=== PATIENT | male | born 1975 | race Hispanic/Latino ===

== ENCOUNTER 2017-06-27 03:24 | Emergency (ER) | payer OTHER ==
[~2017-06-27] VITALS: Ht 167.6 cm; Wt 83.0 kg
[2017-06-27 03:29] VITALS: BP 144/91
[2017-06-27] MEDS ORDERED: GABA600T PO (03:37)
[2017-06-27] MEDS ORDERED: TOPR25TA PO (03:37)
[2017-06-27] MEDS ORDERED: LOSA50TA20 PO (03:37)
[2017-06-27] MEDS ORDERED: SING10TA32 PO (03:37)
[2017-06-27] MEDS ORDERED: CYMB1CAP4 PO (03:37)
[2017-06-27] MEDS ORDERED: PROT1TAB2 PO (03:37)
[2017-06-27] MEDS ORDERED: FLON27.5 (03:37)
[2017-06-27] MEDS ORDERED: diphenhydrAMINE INJ 50MG/ML VIAL (J1200) IV STA (03:48)
[2017-06-27] MEDS ORDERED: dexameTHASONE 20 MG/5 ML VIAL (J1100) IV ONE (04:00)
== END 2017-06-27 04:18 | disposition home or self-care (01) ==
LOC: M ED 03:24
DX: R21 Rash and other nonspecific skin eruption (principal); T50.905A Adverse effect of unspecified drugs, medicaments and biological substances, initial encounter; I10 Essential (primary) hypertension; F33.9 Major depressive disorder, recurrent, unspecified; Z79.899 Other long term (current) drug therapy
CPT/HCPCS: 96374; 96375; 99283; J1100; J1200

== ENCOUNTER → 2017-08-11 | Outpatient (CLI) | payer OTHER ==
[~2017-08-11] MED LIST: CYMB1CAP4 PO; FISH5CAP PO; FLON27.5; GABA600T PO; LOSA50TA20 PO; PROT1TAB2 PO; SING10TA32 PO; TOPR25TA PO; VITA100067 PO; VITA1CAP7 PO; ZOLM2.5T2 PO
--- NOTE | 2017-08-11 21:54 | ECGEPIP ---
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
== END ==
LOC: M EKG 09:36
PROVIDERS: ATTEND Anesthesiology
DX: Z01.818 Encounter for other preprocedural examination (principal); I10 Essential (primary) hypertension; K21.9 Gastro-esophageal reflux disease without esophagitis; M19.90 Unspecified osteoarthritis, unspecified site; F41.9 Anxiety disorder, unspecified; J45.909 Unspecified asthma, uncomplicated; R94.31 Abnormal electrocardiogram [ECG] [EKG]

== ENCOUNTER 2017-08-20 09:36 | Day surgery (SDC) | payer OTHER ==
[~2017-08-20] VITALS: Ht 167.6 cm; Wt 85.3 kg
[2017-08-20] MEDS ORDERED: LR 1,000 ML IV ONE (09:45)
[2017-08-20] MEDS ORDERED: LIDOCAINE W/EPINEPHRINE 1% 20ML VIAL As Ordered ONE (12:38)
[2017-08-20] MEDS ORDERED: OXYMETAZOLINE NASAL SPRAY (AFRIN) As Ordered ONE (12:39)
[2017-08-20] MEDS ORDERED: MIDAZOLAM INJ 2 MG/2 ML VIAL (J2250) As Ordered ONE (13:02)
[2017-08-20] MEDS ORDERED: fentaNYL 100 MCG/2 ML INJECTION (J3010) As Ordered ONE (13:02)
[2017-08-20] MEDS ORDERED: dexameTHASONE 4 MG/ML 1ML VIAL (J1100) As Ordered ONE (13:02)
[2017-08-20] MEDS ORDERED: METOCLOPRAMIDE INJ 10MG/2ML VIAL (J2765) As Ordered ONE ×2 (13:04→13:05)
[2017-08-20] MEDS ORDERED: NEOSTIGMINE 10 MG/10 ML VIAL (J2710) As Ordered ONE (13:05)
[2017-08-20] MEDS ORDERED: GLYCOPYRROLATE INJ 0.2 MG/ML 2 ML VIAL As Ordered ONE (13:05)
[2017-08-20] MEDS ORDERED: ONDANSETRON 4MG/2ML VIAL (J2405) As Ordered ONE (13:05)
[2017-08-20] MEDS ORDERED: PROPOFOL 200 MG/20 ML VIAL As Ordered ONE (13:06)
[2017-08-20] MEDS ORDERED: ROCURONIUM BROMIDE 50 MG/5 ML VIAL As Ordered ONE (13:06)
[2017-08-20] MEDS ORDERED: MEPERIDINE INJ 25 MG/ML VIAL (J2175) IV PRN (14:00)
[2017-08-20] MEDS ORDERED: fentaNYL 100 MCG/2 ML INJECTION (J3010) IV PRN (14:00)
[2017-08-20] MEDS ORDERED: ONDANSETRON 4MG/2ML VIAL (J2405) IV PRN (14:00)
[2017-08-20] MEDS ORDERED: LR 1,000 ML IV SCH (14:00)
[2017-08-20] MEDS ORDERED: KETOROLAC 30 MG/ML VIAL (J1885) IV PRN (14:00)
[2017-08-20] MEDS: PERCOCET 5MG/325MG TAB PO PRN ×2 (14:05→14:34)
[2017-08-20 15:25] VITALS: BP 161/100
--- NOTE | 2017-08-23 10:19 | RO ---
DATE OF PROCEDURE: 08/20/2017 PREOPERATIVE DIAGNOSES: Deviated septum, chronic rhinitis. POSTOPERATIVE DIAGNOSES: deviated septum, chronic rhinitis. PROCEDURE: Septoplasty, partial resection of inferior turbinates. SURGEON: Dr. Siddhartha Sifuentes [employer]: ANESTHESIA: General endotracheal. INDICATIONS: 42-year-old with a long history of nasal obstruction. DESCRIPTION OF PROCEDURE: Satisfactory general endotracheal anesthesia administered. pharyngeal pack placed. The nose was prepared for surgery by placing cotton-soaked pledgets with Afrin solution to nasal cavity bilaterally. 1% Xylocaine with 1:100,000 epinephrine was used to inject into the nasal septum and inferior turbinates. A Triana incision was made on the left side of the nose. A mucoperichondrial flap and envelope was created on the left side of the nasal septum and carried down to the junction of the bony and cartilaginous septum. This was then with an elevator, and an envelope was then created on the right side of the septum. A Rigo scissors was used to make a cut high in the perpendicular plate in the midportion of the vomer, and a central segment of the bony septum was resected. Next, with the round knife on the Henderson elevator, a strip of cartilage was resected from the floor of the nose, mobilizing the quadrilateral cartilage and creating a swinging door. Then, a central segment of cartilaginous septum was resected, preserving a 1 cm dorsal and caudal strut. Double-action rongeur was used to take down deflected portions of the perpendicular plate, as well. Finally, the maxillary crest spur was taken down after elevating mucoperiosteum off both sides of it with a chisel. A segment of the resected cartilage was morselized and placed back into the septal envelope. The incision was closed using an interrupted #5-0 chromic suture. Then, a #4-0 plain suture was placed in a joza-vau-fplvw fashion through the two leaves of mucoperichondrium to appose them. Next, the inferior turbinates were medially infractured. A #15 blade was used to make an incision on the anterior tip of the inferior turbinate. With a Henderson elevator, a mucoperiosteal tunnel was created on the medial side of the turbinate. Then, the microdebrider with a 2.9 mm blade was inserted into the tunnel, and the underlying turbinate bone was weakened and partially resected using the microdebrider. Then, the turbinate was laterally outfractured. The posteroinferior tip of the turbinate was then cauterized with suction cautery. Completing the surgery, Villa splints were placed into the nose and sewn to the columella with a #2-0 Prolene suture. The pharyngeal pack removed, throat suctioned. The patient was then awakened, extubated, and sent to recovery in satisfactory condition. He will be discharged home on Tylox for pain, doxycycline 100 mg twice a day and will be seen in the office in three days for splint removal.
== END 2017-08-20 15:30 | disposition home or self-care (01) ==
LOC: M SDC 09:36
PROVIDERS: ATTEND Specialist
DX: J34.2 Deviated nasal septum (principal); J31.0 Chronic rhinitis; I10 Essential (primary) hypertension; K21.9 Gastro-esophageal reflux disease without esophagitis; R01.1 Cardiac murmur, unspecified; M12.9 Arthropathy, unspecified; M48.00 Spinal stenosis, site unspecified; R21 Rash and other nonspecific skin eruption; F41.9 Anxiety disorder, unspecified; G43.909 Migraine, unspecified, not intractable, without status migrainosus; J45.909 Unspecified asthma, uncomplicated; Z79.899 Other long term (current) drug therapy; Z87.820 Personal history of traumatic brain injury
CPT/HCPCS: 30130; 30520; 88300; J1100; J2250; J2405; J2710; J2765; J3010